=== PATIENT | male | born 1950 | race Two or more races ===

== ENCOUNTER 2022-09-23 15:51 | Emergency (ER) | payer OTHER ==
[~2022-09-23] VITALS: Ht 170.2 cm; Wt 109.1 kg
[2022-09-23] MEDS ORDERED: ONDANSETRON ODT 4 MG TAB PO ONE (22:00)
[2022-09-23] MEDS ORDERED: HYDROcodone-ACET 5/325MG TAB PO ONE (22:00)
[2022-09-23 23:04] VITALS: BP 117/77
== END 2022-09-23 23:10 | disposition home or self-care (01) ==
LOC: EDBD 15:51 → ER 15:55
DX: S09.90XA Unspecified injury of head, initial encounter (principal); M54.2 Cervicalgia; Z91.030 Bee allergy status; V89.2XXA Person injured in unspecified motor-vehicle accident, traffic, initial encounter; Y93.89 Activity, other specified; Y92.89 Other specified places as the place of occurrence of the external cause; Y99.8 Other external cause status
CPT/HCPCS: 70450; 72040; 99284; Q0162